=== PATIENT | male | born 1985 | race Hispanic/Latino ===

== ENCOUNTER 2020-12-16 23:20 | Emergency (ER) | payer BC ==
--- NOTE | 2020-12-17 03:05 | Emergency Department Report ---
HPI - General Chief Complaint: Extremity Injury, Lower Time Seen by Provider: 12/17/20 02:38 - HPI HPI: This is a 35-year-old -[place] male who presents to the emergency department with a complaint of left knee pain and swelling that has been going on over the past week. Patient went to [facility] yesterday and had a x- ray of the knee as well as an ultrasound, that sounds like it was to rule out a DVT, and the patient says that everything came back negative. He was discharged home but told that if his pain or swelling increases that he should come back to the emergency department. He has a past medical history of HIV for which he is compliant with his medications and says that his numbers are great. He denies any fever, nausea, vomiting, skin color change, rash or lesions. Currently his knee pain is 4 out of 10 while at rest, but increases to 10 out of 10 with certain movements or manipulation of the knee. ED Past Medical Hx - Past Medical History Hx Seizures: Yes Hx HIV: Yes (compliant with meds) - Social History Smoking Status: Current Every Day Smoker - Medications Home Medications: Home Medications Medication Instructions Recorded Confirmed Last Taken Type Ondansetron [Zofran Odt] 4 mg PO Q4H PRN #10 tab.rapdis 03/16/14 Unknown Rx Cyclobenzaprine HCl [Flexeril 5mg] 5 mg PO TID PRN #15 tablet 01/11/15 Unknown Rx Naproxen [Naprosyn TAB] 500 mg PO BID PRN #20 tablet 01/11/15 Unknown Rx HYDROcodone/APAP 5-325 [Steen 1 each PO Q6HR PRN #10 tablet 12/17/20 Unknown Rx 5/325] ED Review of Systems ROS: Stated complaint: LT KNEE INJURY/SWELLING Other details as noted in HPI Comment: All other systems reviewed and negative Constitutional: denies: chills, fever Eyes: denies: eye pain, vision change ENT: denies: ear pain, throat pain Respiratory: denies: cough, shortness of breath Cardiovascular: denies: chest pain, palpitations Gastrointestinal: denies: abdominal pain, vomiting Genitourinary: denies: dysuria, discharge Musculoskeletal: joint swelling, arthralgia Skin: denies: rash, lesions, change in color Neurological: denies: headache, numbness, paresthesias Physical Exam - Physical Exam Vital Signs: Vital Signs 12/17/20 00:13 Temperature 98.2 F Pulse Rate 75 Respiratory 18 Rate Blood Pressure 132/67 O2 Sat by Pulse 98 Oximetry Physical Exam: GENERAL: The patient is well-developed well-nourished. HENT: Normocephalic. Atraumatic. Patient has moist mucous membranes. EYES: Extraocular motions are intact. NECK: Supple. Trachea is midline. CHEST/LUNGS: Clear to auscultation. There is no respiratory distress noted. HEART/CARDIOVASCULAR: Regular. There is no tachycardia. There is no murmur. ABDOMEN: Abdomen is soft, nontender. Patient has normal bowel sounds. SKIN: Skin is warm and dry. There is some nonpitting swelling to the left knee. No erythema, rash or lesions. No warmth or fluctuance. NEURO: The patient is awake, alert, and oriented. The patient is cooperative. The patient has no focal neurologic deficits. Normal speech. MUSCULOSKELETAL: There is tenderness to palpation to the circumferential left knee. No laxity with valgus or varus stress of the affected left knee. Negative anterior and posterior drawer test. ED Course Vital Signs 12/17/20 00:13 Temperature 98.2 F Pulse Rate 75 Respiratory 18 Rate Blood Pressure 132/67 O2 Sat by Pulse 98 Oximetry ED Medical Decision Making - Lab Data Result diagrams: 12/17/20 03:15 12/17/20 03:15 Lab Results 12/17/20 12/17/20 Range/Units 03:15 03:15 WBC 6.0 (4.5-11.0) K/mm3 RBC 4.13 (3.65-5.03) M/mm3 Hgb 13.8 (11.8-15.2) gm/dl Hct 40.3 (35.5-45.6) % MCV 98 H (84-94) fl MCH 34 H (28-32) pg MCHC 34 (32-34) % RDW 14.9 (13.2-15.2) % Plt Count 157 (140-440) K/mm3 Lymph % (Auto) 47.3 H (13.4-35.0) % [place] % (Auto) 7.7 H (0.0-7.3) % Eos % (Auto) 3.6 (0.0-4.3) % Baso % (Auto) 0.6 (0.0-1.8) % Lymph # (Auto) 2.8 (1.2-5.4) K/mm3 [place] # (Auto) 0.5 (0.0-0.8) K/mm3 Eos # (Auto) 0.2 (0.0-0.4) K/mm3 Baso # (Auto) 0.0 (0.0-0.1) K/mm3 Seg Neutrophils % 40.8 (40.0-70.0) % Seg Neutrophils # 2.5 (1.8-7.7) K/mm3 Sodium 139 (137-145) mmol/L Potassium 4.1 (3.6-5.0) mmol/L Chloride 104.0 (98-107) mmol/L Carbon Dioxide 27 (22-30) mmol/L Anion Gap 12 mmol/L BUN 13 (9-20) mg/dL Creatinine 1.0 (0.8-1.3) mg/dL Estimated GFR > 60 ml/min BUN/Creatinine Ratio 13 % Glucose 92 (75-100) mg/dL Calcium 8.6 (8.4-10.2) mg/dL C-Reactive Protein 0.60 (0.00-1.30) mg/dL - Radiology Data Radiology results: image reviewed interpreted by me: X-ray of the left knee shows a suprapatellar joint effusion. No fracture, dislocation, signs of osteomyelitis. - Medical Decision Making This patient presents with left knee pain and swelling. On examination there is no laxity with valgus or varus stress. Negative anterior and posterior drawer test. He is neurovascularly intact. There is obvious swelling of the left knee when compared to the right. There is no warmth, rash, erythema. X-ray of the left knee shows a suprapatellar joint effusion. Labs are unremarkable including CBC, metabolic panel and CRP. Patient's vital signs are unremarkable including being afebrile. Given that there is no warmth, erythema, the patient is afebrile, there is no leukocytosis, and there is no elevation in the CRP, this appears low likelihood to be septic arthritis. Even so, I discussed with the patient about arthrocentesis for both diagnostic and therapeutic reasons the patient has requested to defer this procedure and follow-up outpatient with orthopedist. Patient has been placed in a knee immobilizer and on crutches and been given 2 different local orthopedic groups for outpatient follow-up. Critical Care Time: No Critical care attestation.: If time is entered above; I have spent that time in minutes in the direct care of this critically ill patient, excluding procedure time. ED Disposition Clinical Impression: Knee effusion, left Left knee pain Qualifiers: Chronicity: acute Qualified Code(s): M25.562 - Pain in left knee Disposition: TO HOME OR SELFCARE Is pt being admited?: No Condition: Stable Additional Instructions: Please follow-up with an orthopedist in the next few days if possible. I am giving you a referral for 2 different local orthopedic groups, Dr. Baker and Stepan. You have been prescribed a medication that is sedating and therefore should not be taken prior to driving, working, and responsible for children and in no way should be mixed with alcohol of any quantity. Return to the emergency department with any worsening of your symptoms, new or concerning symptoms not addressed during this current emergency department visit, or with any acute distress. Prescriptions: HYDROcodone/APAP 5-325 [Steen 5/325] 1 each PO Q6HR PRN #10 tablet PRN Reason: Pain Referrals: SHONDA BAKER MD [Staff Physician] - 2-3 Days [facility] [Provider Group] - 2-3 Days Time of Disposition: 05:05
[2020-12-17 03:41] LABS: Basophils % (Auto) 0.6 % (0.0-1.8); Eosinophils # (Auto) 0.2 K/mm3 (0.0-0.4); Eosinophils % (Auto) 3.6 % (0.0-4.3); Hematocrit 40.3 % (35.5-45.6); Hemoglobin 13.8 gm/dl (11.8-15.2); Lymphocytes # (Auto) 2.8 K/mm3 (1.2-5.4); Lymphocytes % (Auto) 47.3 % (13.4-35.0); Mean Corpuscular HGB Conc 34 % (32-34); Mean Corpuscular Volume 98 fl (84-94); Monocytes # (Auto) 0.5 K/mm3 (0.0-0.8); Monocytes % (Auto) 7.7 % (0.0-7.3); Platelet Count 157 K/mm3 (140-440); Red Blood Count 4.13 M/mm3 (3.65-5.03); Red Cell Distribution Width 14.9 % (13.2-15.2)
--- NOTE | 2020-12-17 03:47 | XRay Report ---
Left knee-3 views INDICATION: left knee pain and swelling. COMPARISON: None. IMPRESSION: No acute osseous abnormality. Mild generalized soft tissue swelling about the knee. Mod erate-sized suprapatellar joint effusion as well. Normal alignment. No significant DJD. Signer Name: Roscoe Corbin MD Signed: 12/17/2020 3:43 AM Workstation Name: [id number]
[2020-12-17 03:58] LABS: BUN/Creatinine Ratio 13; Blood Urea Nitrogen 13 mg/dL (9-20); Calcium 8.6 mg/dL (8.4-10.2); Hemolysis Index 4
[2020-12-17 06:06] VITALS: BP 126/71
== END 2020-12-17 06:05 | disposition home or self-care (01) ==
LOC: ED 23:20
DX: M25.562 Pain in left knee (principal); M25.462 Effusion, left knee; R56.9 Unspecified convulsions; F17.200 Nicotine dependence, unspecified, uncomplicated; Z79.899 Other long term (current) drug therapy; Z21 Asymptomatic human immunodeficiency virus [HIV] infection status; Z88.8 Allergy status to other drugs, medicaments and biological substances
CPT/HCPCS: 36415; 80048; 85025; 86140

== ENCOUNTER 2021-01-03 23:00 | Emergency (ER) | payer BC | END 2021-01-03 23:22 | disposition left against medical advice (07) | LOC: ED 23:00 | DX: M25.562 Pain in left knee (principal); Z53.21 Procedure and treatment not carried out due to patient leaving prior to being seen by health care provider ==

== ENCOUNTER 2021-10-14 09:15 | Emergency (ER) | payer BC, OTHER ==
--- NOTE | 2021-10-14 10:21 | Emergency Department Report ---
ED Back Pain/Injury HPI - General Chief Complaint: Back Pain/Injury Stated Complaint: BACK PAIN Time Seen by Provider: 10/14/21 10:08 Source: patient Limitations: No Limitations - History of Present Illness Initial Comments: 36 yo AA comes to ER with back pain worse with movement. This is p he and his had food poison p eating oysters. He states that Thurs and Fri he vomited so hard that he is sore from it. no n/v/d since Thursday. No trauma. No fever/ chills. No abd pain. No dysuria. No cp. No SOB. Pain is aching in nature and worse with movement. No radiation to legs. He states he hurt so much he missed work and is asking for work note. MD Complaint: back pain Place: home Consistency: intermittent Worsens With: movement Associated Symptoms: denies other symptoms. denies: confusion, weakness, chest pain, numbness, difficulty walking, cough, difficulty urinating, diaphoresis, incontinence, fever/chills, constipation, headaches, abdominal pain, loss of appetite, malaise, nausea/vomiting, rash, seizure, shortness of breath, syncope - Related Data Previous Rx's Medication Instructions Recorded Last Taken Type Cyclobenzaprine [Flexeril] 10 mg PO TID PRN #10 tablet 10/14/21 Unknown Rx Ibuprofen [Motrin] 800 mg PO Q8HR PRN #30 tablet 10/14/21 Unknown Rx Allergies Allergy/AdvReac Type Severity Reaction Status Date / Time sulfamethoxazole AdvReac abd Verified 03/16/14 07:35 [From Bactrim] cramping trimethoprim [From Bactrim] AdvReac abd Verified 03/16/14 07:35 cramping ED Review of Systems ROS: Stated complaint: BACK PAIN Other details as noted in HPI Comment: All other systems reviewed and negative ED Past Medical Hx - Past Medical History Medical history: no medical history Surgical history: no surgical history Psychiatric history: no pertinent history Family history: no significant family history - Social History Smoking Status: Never Smoker Alcohol use: rarely Drug use: none ED Back Pain Physical Exam - Exam General: Vital signs noted. No distress. Alert and acting appropriately. a/o x 4 s1s2 lungs cta abd snt no cva tenderness no spine tenderness pain reproducable with movement left lumbar paraspinal spasm noted on exam Back/Abdomen: No Abdominal Tenderness, No Perithoracic Tenderness, No Perilumbar Tenderness, No Sacroiliac Tenderness, No Flank Tenderness, No Straight Leg Raise Pain Neuro: Yes Normal DTR's, Yes Normal Gait, No Normal Sensation, No Motor Weakness ED Course Vital Signs 10/14/21 09:58 Temperature 97.6 F Pulse Rate 71 Respiratory 18 Rate Blood Pressure 117/76 O2 Sat by Pulse 99 Oximetry ED Medical Decision Making - Medical Decision Making Vital Signs 10/14/21 10/14/21 09:58 11:02 Temperature 97.6 F Pulse Rate 71 68 Respiratory 18 16 Rate Blood Pressure 117/76 Blood Pressure 115/79 [Right] O2 Sat by Pulse 99 98 Oximetry pt educated on muscle strain dc home with rx/follow up instructions. he verbalizes understanding of plan of care. - Differential Diagnosis muscle strain Critical care attestation.: If time is entered above; I have spent that time in minutes in the direct care of this critically ill patient, excluding procedure time. ED Disposition Clinical Impression: Muscle strain Disposition: 01 HOME / SELF CARE / HOMELESS Is pt being admited?: No Does the pt Need Aspirin: No Condition: Stable Instructions: Muscle Strain, [id number] Additional Instructions: no lifting pushing pulling more than 10 pounds meds as ordered if pain persists follow up with pcp or ortho in 3 days referral below warm baths stretching will help Prescriptions: Cyclobenzaprine [Flexeril] 10 mg PO TID PRN #10 tablet PRN Reason: Muscle Spasm Ibuprofen [Motrin] 800 mg PO Q8HR PRN #30 tablet PRN Reason: Pain, Moderate (4-6) Referrals: SHONDA KULKARNI MD [Staff Physician] - 3-5 Days ADELFO ANTONIO MD [Staff Physician] - 3-5 Days Forms: Work/School Release Form(ED) Time of Disposition: 10:19
[2021-10-14 11:07] VITALS: BP 115/79
== END 2021-10-14 11:07 | disposition home or self-care (01) ==
LOC: ED 09:15
DX: T14.8XXA Other injury of unspecified body region, initial encounter (principal); Z88.2 Allergy status to sulfonamides; X58.XXXA Exposure to other specified factors, initial encounter; Y93.89 Activity, other specified; Y92.89 Other specified places as the place of occurrence of the external cause; Y99.8 Other external cause status
CPT/HCPCS: 99282

== ENCOUNTER 2021-12-27 02:58 | Emergency (ER) | payer SELFPAY ==
--- NOTE | 2021-12-27 09:32 | Emergency Department Report ---
ED Back Pain/Injury HPI - General Chief Complaint: Back Pain/Injury Stated Complaint: LOWER BACK PAIN Time Seen by Provider: 12/27/21 09:17 Source: patient Limitations: No Limitations - History of Present Illness Initial Comments: 36-year-old black male medical history of HIV presents to the emergency department for evaluation of back pain. He states that he was doing yard work on Thursday and has had bilateral lower back pain since then. He denies injury or trauma. Pain unrelieved by ibuprofen and Tylenol. He denies abdominal pain, fever, or urinary symptoms. MD Complaint: back pain -: Gradual, days(s) Similar Symptoms Previously: No Place: home Radiation: none Severity: mild Severity scale (0 -10): 4 Quality: aching Consistency: intermittent Improves With: none Associated Symptoms: denies other symptoms. denies: weakness, chest pain, numbness, difficulty walking, cough, difficulty urinating, diaphoresis, incontinence, fever/chills, headaches, abdominal pain, loss of appetite, malais e, nausea/vomiting, rash, seizure, shortness of breath, syncope - Related Data Home Medications Medication Instructions Recorded Confirmed Last Taken Bictegrav/Emtricit/Tenofov Ala 1 each PO 12/27/21 12/26/21 [Biktarvy 50-200-25 mg Tablet] Previous Rx's Medication Instructions Recorded Last Taken Type Cyclobenzaprine [Flexeril] 10 mg PO TID PRN #10 tablet 10/14/21 Unknown Rx Ibuprofen [Motrin] 800 mg PO Q8HR PRN #30 tablet 10/14/21 12/27/21 Rx Cyclobenzaprine [Flexeril] 10 mg PO TID PRN #21 tab 12/27/21 Unknown Rx Allergies Allergy/AdvReac Type Severity Reaction Status Date / Time sulfamethoxazole AdvReac abd Verified 03/16/14 07:35 [From Bactrim] cramping trimethoprim [From Bactrim] AdvReac abd Verified 03/16/14 07:35 cramping ED Review of Systems ROS: Stated complaint: LOWER BACK PAIN Other details as noted in HPI Comment: All other systems reviewed and negative Constitutional: denies: chills, fever Respiratory: denies: shortness of breath, SOB with exertion, SOB at rest Cardiovascular: denies: chest pain, palpitations, dyspnea on exertion Gastrointestinal: denies: abdominal pain, nausea, vomiting, diarrhea, hematemesis, melena, hematochezia Genitourinary: denies: urgency, dysuria, frequency, hematuria, discharge, testicular pain Musculoskeletal: back pain Neurological: denies: headache, weakness ED Past Medical Hx - Past Medical History Hx Seizures: Yes Hx HIV: Yes (compliant with meds) - Social History Smoking Status: Never Smoker - Medications Home Medications: Home Medications Medication Instructions Recorded Confirmed Last Taken Type Cyclobenzaprine [Flexeril] 10 mg PO TID PRN #10 tablet 10/14/21 Unknown Rx Ibuprofen [Motrin] 800 mg PO Q8HR PRN #30 tablet 10/14/21 12/27/21 Rx Bictegrav/Emtricit/Tenofov Ala 1 each PO 12/27/21 12/26/21 History [Biktarvy 50-200-25 mg Tablet] Cyclobenzaprine [Flexeril] 10 mg PO TID PRN #21 tab 12/27/21 Unknown Rx ED Physical Exam - General Limitations: No Limitations General appearance: alert, in no apparent distress - Head Head exam: Present: atraumatic, normocephalic - Eye Eye exam: Present: normal appearance. Absent: conjunctival injection - Neck Neck exam: Present: normal inspection. Absent: tenderness, lymphadenopathy - Respiratory Respiratory exam: Present: normal lung sounds bilaterally. Absent: respiratory distress, wheezes, rales, rhonchi, chest wall tenderness - Cardiovascular Cardiovascular Exam: Present: tachycardia. Absent: normal heart sounds - GI/Abdominal GI/Abdominal exam: Present: soft, normal bowel sounds. Absent: distended, tenderness, guarding, rebound, rigid - Extremities Exam Extremities exam: Present: normal inspection, normal capillary refill. Absent: tenderness, pedal edema, joint swelling, calf tenderness - Back Exam Back exam: Present: normal inspection. Absent: CVA tenderness (R), CVA tenderness (L), vertebral tenderness - Expanded Back Exam Expanded Back exam: Absent: saddle anesthesia 1 - Tenderness to palpation - Neurological Exam Neurological exam: Present: alert, oriented X3, normal gait - Psychiatric Psychiatric exam: Present: normal affect, normal mood - Skin Skin exam: Present: warm, dry, intact, normal color ED Course Vital Signs 12/27/21 12/27/21 12/27/21 03:00 09:37 09:39 Temperature 98.6 F 98.1 F Pulse Rate 109 H 78 75 Respiratory 20 16 16 Rate Blood Pressure 156/92 142/89 [Left] O2 Sat by Pulse 98 99 97 Oximetry ED Medical Decision Making - Medical Decision Making 36-year-old black male medical history of HIV presents to the emergency department for evaluation of back pain. He states that he was doing yard work on Thursday and has had bilateral lower back pain since then. He denies injury or trauma. Pain unrelieved by ibuprofen and Tylenol. He denies abdominal pain, fever, or urinary symptoms. Exam consistent with musculoskeletal pain only. Patient will be treated with Flexeril and advised to use Tylenol and Motrin as needed for at home. He is advised to follow-up with his primary care provider or orthopedics if no improvement or worsening symptoms. He verbalized understanding of and agreement with plan of care. Critical care attestation.: If time is entered above; I have spent that time in minutes in the direct care of this critically ill patient, excluding procedure time. ED Disposition Clinical Impression: Back pain Qualifiers: Back pain location: low back pain Chronicity: acute Back pain laterality: bilateral Sciatica presence: without sciatica Qualified Code(s): M54.50 - Low back pain, unspecified Disposition: 01 HOME / SELF CARE / HOMELESS Is pt being admited?: No Does the pt Need Aspirin: No Condition: Stable Instructions: Acute Back Pain, Adult Additional Instructions: Take medications as prescribed. Continue ibuprofen and Tylenol at home. Follow-up with primary care provider if worsening symptoms. Return to the emergency department as needed. Prescriptions: Cyclobenzaprine [Flexeril] 10 mg PO TID PRN #21 tab PRN Reason: Muscle Spasm Referrals: ADELFO ANTONIO MD [Primary Care Provider] - 3-5 Days Forms: Work/School Release Form Time of Disposition: 09:31
[2021-12-27 09:40] VITALS: BP 142/89
== END 2021-12-27 09:39 | disposition home or self-care (01) ==
LOC: ED 02:58
DX: M54.50 Low back pain, unspecified (principal); Z88.2 Allergy status to sulfonamides
CPT/HCPCS: 99282